=== PATIENT | female | born 1970 | race Two or more races ===

== ENCOUNTER 2025-05-28 08:37 | Outpatient (RCR) | payer MEDICAID, SELFPAY ==
--- NOTE | 2025-05-14 17:01 | CTCCONSULT_ITS ---
[facility] [address] [place], [place] [address] Consultation Note Date: 05/14/2025 MR#: [id number] Name: NATHALIE HIDALGO : 1970 Dx: C23 Malignant neoplasm of gallbladder Attending physician. Formerly [facility] Referring physician. Laura Ivy MD Reason consultation. Patient with metastatic carcinoma, gallbladder or pancreas biliary origin referred to the cancer treatment center. History of Present Illness: Patient is a 55-year-old lady who experienced abdominal pain associate with nausea vomiting with elevated liver function tests including bili of 4.8 and considerably elevated ALP ALT AST. MRCP was done which showed masses within the gallbladder distal aspect of the common bile duct and neck of the pancreas as well as fatty liver infiltration. CT 04/19 revealed hyperdense foci within the gallbladder lumen with wall enhancement possible L4 met no discrete cystic or solid focal pancreatic lesion and common bile duct. Underwent EUS FNB niharika hepatis lymph node at [facility] 04/16/2025 revealing metastatic carcinoma favoring pancreatobiliary origin, along with placement of stent. Referred to [facility] CT 04/24/25. No cystic or solid pancreatic lesion. Irregular wall thickening and enhancement about 3 cm common hepatic duct. Extensive upper abdominal retroperitoneal and right pelvic lymphadenopathy intraluminal hyperdense foci within gallbladder and wall enhancement. L4 met. PET scan 04/24/2025 revealed bony osseous mets T2 T5 L3-L4 and S3. Gallbladder with very high SUV max of 23 mild hypermetabolic lymph nodes surrounding common bile duct stent and multifocal retroperitoneal lymphadenopathy extending from peripancreatic region to the pelvis. [facility] recommended treatment closer to patient resides in [facility]. Most recent labs 04/24/2025 bili 1.2 ALT 139 AST 25 alk phos 295. CBC 6.9 hemoglobin 13 platelets 307 thousand Past Medical History: Diverticulosis and constipation Meds. Laxatives prior to recent cancer diagnosis was given oxycodone while at [facility] for pain Allergies none to meds. Social history from patient ; from [place] denies smoking drinking. Family history. Brother of ?blood? cancer Review of Systems: Has had about 5 pound weight loss in the past 3 months able to consume most foods without significant abdominal pain. Physical Exam: General: Well-appearing lady no acute distress HEENT: Eyes nonicteric no oral lesions no cervical or cervical adenopathy CV: Chest clear to auscultation heart regular rate and rhythm ABD: Soft no organomegaly tenderness EXT: No cyanosis clubbing or edema Assessment: #1. 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 #2. Significant mets involving TL spine and sacrum multifocal retroperitoneal lymphadenopathy extending from peripancreatic region to pelvis. #3. After plastic stent placed, her LFTs have come down substantially and patient is doing relatively well. #4. Dr. Pink, medical oncologist should be seeing her in a few days, and I took the liberty of ordering a port as well as labs that should be ready by the time patient is seen by her. #5. Have placed patient on oxycodone 5 mg every 6 as needed for her low back pain related to lumbosacral involvement, and will follow her as well. #6. Thank you very much for allowing me to evaluate this patient. Cc: Laura Ivy MD [facility]. Electronically signed by: Pineda Ames MD, DABR 05/14/2025 4:58 PM
--- NOTE | 2025-06-01 22:46 | CTCCONSULT_ITS ---
Patient: NATHALIE HIDALGO : 1970 MR#: [id number] Page 2 of 2 CONSULTATION NOTE DATE OF CONSULTATION: 05/28/2025 NAME: NATHALIE HIDALGO ACCOUNT: [id number] : 1970 AGE: 55 REFERRING PHYSICIAN: Rebecca Ashby MD PRIMARY PHYSICIAN: REASON FOR VISIT: Pancreaticobiliary tumor ONCOLOGY HISTORY: DIAGNOSIS: Malignant neoplasm of gallbladder [ICD10] C23 DATE OF DIAGNOSIS: 04/16/2025 STAGE/TNM: Biopsy of the niharika hepatis metastatic carcinoma favoring pancreaticobiliary origin metastatic TREATMENT HISTORY: Care?Plan Start?Date Cycle Day Intent modified?FOLFIRINOX?mario?3?pancreas 05/28/2025 1 14 Palliative HISTORY OF PRESENT ILLNESS: 55-year-old female non-Danish English speaking patient. Official transfer later was used during the conversation. Patient says that she had no symptoms and was planning for education. She initially thought her stomach pain was from anxiety and stress but later when pain got worse and she went to the emergency room and was diagnosed with cancer. Patient had a biopsy on 04/16/2025 which showed metastatic cancer favoring pancreaticobiliary origin. Patient had elevated liver enzymes hyperbilirubinemia dilated pancreatic duct which was suspicious for biliary obstruction and imaging showed mass within the gallbladder and distal aspect of the common bile duct. Patient have a history of diverticulosis and constipation. Patient had EUS ERCP 04/17/2025 hand plastic biliary stent was placed along with the biopsy of the niharika hepatis lymph node with the pathology showing cholangiocarcinoma. Patient was seen at [facility] OTHER MEDICAL HISTORY/CONDITIONS: DENIES DENIES FAMILY HISTORY: Sibling:?BROTHER???TEREZA SOCIAL HISTORY: Occupational?History:?[employer] Education?Level:?Completed 8th grade Marital?Status:? 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 Compazine - 10 mg 10 mg three times a day prn nausea 2. oxycodone - 5 mg 1 tab q6 3. Zofran - 8 mg 8 mg three times a day prn nausea Medications Last Reconciled by Starla Pereira LVN on 05/18/2025 ALLERGIES: REVIEW OF SYSTEMS: A complete 14-point review of systems was performed and is negative except as noted in interval history. PHYSICAL EXAMINATION: VITAL SIGNS: Temperature?98.9, B/P?118/79, Height?65?inches, Oxygen?Saturation?97% Weight?194?lbs (Change?since?05/14/25:?-4?lbs) PAIN: 8 - Very severe pain ECOG Performance Status: 1 - Symptomatic; ambulatory; restricted in strenuous activity GENERAL APPEARANCE: Appears well, in no apparent distress, appropriately interactive. HEENT: Normocephalic, no temporal wasting, normal conjunctiva, no scleral icterus, normal hearing, lips without lesions, neck normal range of motion. CARDIOVASCULAR: Not assessed. PULMONARY: Normal respiratory effort, no respiratory distress or use of accessory muscles, speaking in full sentences, no tachypnea. EXTREMITIES: No pedal edema or cyanosis. SKIN: Normal skin appearance. NEUROLOGIC: Alert and oriented x4. PSHYCHIATRIC: Appropriate affect, mood normal, behavior normal, intact thought and speech. LABORATORY DATA: I have personally reviewed and interpreted each of the patient?s relevant lab tests, abnormal findings are below: Date ASSESSMENT/PLAN: Pancreaticobiliary cancer metastatic Imaging did not reveal any pancreatic mass but showed likely mass in the gallbladder Will get PET CT scan Port catheter placement Patient is not a surgical candidate at also have bone involvement Pain management by Dr. Ames Will start on chemotherapy ORDERS: Order # Description [id number] CBC with Auto Diff + Comprehensive Metabolic Panel - 12 + CEA + CA 19-9 [id number] CBC with Auto Diff + Comprehensive Metabolic Panel + CA 19-9 [id number] [facility] CDX [id number] CBC with Auto Diff + Comprehensive Metabolic Panel + CA 19-9 [id number] CBC with Auto Diff + Comprehensive Metabolic Panel + CA 19-9 [id number] CBC with Auto Diff + Comprehensive Metabolic Panel + CA 19-9 [id number] CBC with Auto Diff + Comprehensive Metabolic Panel + CA 19-9 [id number] CBC with Auto Diff + Comprehensive Metabolic Panel + CA 19-9 [id number] CBC with Auto Diff + Comprehensive Metabolic Panel + CA 19-9 [id number] CBC with Auto Diff + Comprehensive Metabolic Panel + CA 19-9 [id number] CBC with Auto Diff + Comprehensive Metabolic Panel + CA 19-9 [id number] CBC with Auto Diff + Comprehensive Metabolic Panel + CA 19-9 [id number] CBC with Auto Diff + Comprehensive Metabolic Panel + CA 19-9 [id number] CBC with Auto Diff + Comprehensive Metabolic Panel + CA 19-9 RETURN TO CLINIC: I reviewed the diagnosis, prognosis, and recommended treatment/procedure options with the patient (and/or their legal school admissions representative), including the potential benefits, risks, side effects and alternative therapies. We also discussed the option of no treatment and the possibility of clinical trial participation, if applicable. All questions were addressed, and they demonstrated understanding. They provided informed consent to proceed with the proposed plan of care. BILLING AND COMPLIANCE: I reviewed external records from providers outside my specialty as summarized above. I spent a total of 50 minutes on this patient?s care on the day of their visit excluding time spent related to any billed procedures. This time includes time spent with the patient as well as time spent documenting in the medical record, reviewing patients records and tests, obtaining history, placing orders, communicating with other healthcare professionals, counseling the patient, family or caregiver, and/or care coordination for the diagnoses above. Electronically Signed by: Raji Pink MD T: 10:43 PM CC: PCP: Referring: Rebecca Ashby This document was completed utilizing speech recognition software. Grammatical errors, random word insertions, pronoun errors, and incomplete sentences are an occasional consequence of this system due to software limitations, ambient noise, and hardware issues. Any formal questions or concerns about the content, text or information contained within the body of this dictation should be directly addressed to the provider for clarification.
== END 2025-05-31 23:59 | disposition home or self-care (01) ==
LOC: SCTC 08:37
PROVIDERS: PCP Nurse Practitioner Family; Referring Provider Nurse Practitioner Family; Visit Provider Internal Medicine Hematology & Oncology
DX: C80.1 Malignant (primary) neoplasm, unspecified (principal); C79.51 Secondary malignant neoplasm of bone
CPT/HCPCS: 99213; G0463

== ENCOUNTER 2025-06-04 08:40 | Outpatient (CLI) | payer MEDICAID, SELFPAY ==
[2025-06-02 12:27] VITALS: BMI 30.4
[2025-06-03 13:52] LABS: Basophils # (Auto) 0.0 Thou/mm3 (0.0-0.2); Basophils % (Auto) 1 % (0-2.5); Eosinophils # (Auto) 0.2 Thou/mm3 (0.0-0.5); Eosinophils % (Auto) 2 % (0-10); Hematocrit 32.3 % (36.0-46.0); Hemoglobin 10.5 g/dL (12.0-16.0); Immature Granulocytes Auto 0.06 Thou/mm3 (0.00-0.00); Lymphocytes # (Auto) 3.1 Thou/mm3 (1.0-4.8); Lymphocytes % (Auto) 38 % (10-50); Mean Corpuscular HGB Conc 32.5 g/dl (31.0-37.0); Mean Corpuscular Hemoglobin 27.3 pg (25.0-35.0); Mean Corpuscular Volume 84 fL (80-100); Monocytes # (Auto) 0.5 Thou/mm3 (0.0-0.8); Monocytes % (Auto) 6 % (0-12); Neutrophils # (Auto) 4.2 Thou/mm3 (1.8-7.7); Neutrophils % (Auto) 52 % (37-80); Nucleated Red Blood Cell # 0.00 Thou/mm3 (0.00-0.00); Nucleated Red Blood Cell % 0 /100 WBC (0); Platelet Count 331 Thou/mm3 (140-440); RDW Standard Deviation 43.4 fL (36.4-46.3); Red Blood Count 3.85 Miln/mm3 (4.00-5.20); White Blood Count 8.0 Thou/mm3 (3.6-11.0)
[2025-06-03 14:06] LABS: Blood Urea Nitrogen 11 mg/dL (9-23); Creatinine (Component) 0.7 mg/dL (0.6-1.3); Estimated Creatinine Clearance 103.4 mL/min (>60); eGFR > 60 See Note
[2025-06-03 14:49] LABS: INR 1.0 (0.9-1.3); Partial Thromboplastin Time 26.5 Seconds (22.0-36.0); Prothrombin Time 10.8 Seconds (9.0-12.2)
[2025-06-04] VITALS (9 sets, daily range): BP systolic 136–171; BP diastolic 85–98; PULSE 74–103; RESP 16–18; TEMP 36.3–36.9; O2SAT 92–99
--- NOTE | 2025-06-04 09:00 | XR_ITS ---
Examination: IR venous implantation Port-A-Cath Ultrasound-guided needle placement right internal jugular vein. Fluoroscopy AP Chest, portable single view Exam date and time: June 04, 2025 0934 hours INDICATIONS: Diagnosis gallbladder cancer, need for long-term intravenous chemotherapy. Informed consent provided Technique: A timeout was completed, verifying correct patient, procedure, site, positioning, and special equipment if applicable The patient was placed in a dependent position appropriate for central line placement based on the vein to be cannulated. The patient's right neck was prepped and draped in sterile fashion. Maximum Sterile Barrier Technique used including cap, mask, sterile gown, sterile gloves, and sterile full body drape. If ultrasound technique used: sterile gel and sterile probe covers. Hand Hygiene performed using proper scrub, soap and water, or alcohol-based hand rub. Site right portable apparatus utilized to confirm patency of the right internal jugular vein, utilizing ultrasonographic guidance successful 21-gauge needle puncture into the right internal jugular vein Ultrasound images were recorded and stored. Successful micropuncture with a 21-gauge needle was performed. 0.18 wire guide was introduced into the IVC under fluoroscopic guidance. The wires is then exchanged for a 0.25 J-wire guide placed in the vena cava. Utilizing blunt dissection subcutaneous pocket formed in the upper right chest for the Port-A-Cath reservoir Port-A-Cath reservoir connected to an 8 Haitian 23 cm Port-A-Cath line placed through a venous sheath into the superior vena cava in proper position under fluoroscopic guidance The attending radiologist was present for the entire procedure Estimated blood loss4 cc. Findings: Under fluoroscopy, the tip of the Port-A-Cath is in good position in the vena cava. Portable chest x-ray, post Port-A-Cath placement, as ordered. Impression: Successful ultrasound-guided needle placement right internal jugular vein. Successful IR venous implantation Port-A-Cath, percutaneous. Fluoroscopy 0.2 minute radiation dose 1.44 milligray 1 spot fluoroscopic chest film. AP portable chest completion procedure demonstrates satisfactory position Port-A-Cath tip SVC. May use Port-A-Cath.
[2025-06-04] MEDS: LIDOCAINE INJ PF 1% 30 ML VIAL 5 ML EPID (10:52)
[2025-06-04] MEDS: ceFAZolin/D5W 1 GM IVPB 1 GM/50 ML BAG IV (10:52)
[2025-06-04] MEDS: HEPARIN SOD LOCK SYR 100 UNIT/ML 500 UNIT STFIELD (10:52)
[2025-06-04] MEDS: fentaNYL CIT INJ 50 mCg/ML AMP 2ML 100 MCG IVP (10:52)
[2025-06-04] MEDS: LIDOCAINE 1% W/EPI 1:100K 20 ML VIAL 7 ML INFL (10:52)
--- NOTE | 2025-06-04 12:30 | PC.NURSE ---
discharge instructions were given by Paulo Yard Caller number [phone] discharge instructions were signed by Srinivas dressing looks clean dry and intact without any signs of bleeding
== END 2025-06-04 12:10 | disposition home or self-care (01) ==
PROVIDERS: Radiology Diagnostic Radiology; PCP Nurse Practitioner Family; Referring Provider Radiology Therapeutic Radiology; Visit Provider Radiology Therapeutic Radiology
DX: C23 Malignant neoplasm of gallbladder (principal); Z01.812 Encounter for preprocedural laboratory examination
CPT/HCPCS: 36571; 36415; 76937; 77001; 82565; 84520; 85025; 85610; 85730; C1769; C1788; C1894; J0689; J0690; J1642; J3010; J3490; J7050

== ENCOUNTER 2025-06-30 14:52 | Outpatient (RCR) | payer MEDICAID, SELFPAY ==
[2025-06-24 16:08] LABS: Basophils # (Auto) 0.0 Thou/mm3 (0.0-0.2); Basophils % (Auto) 1 % (0-2.5); Eosinophils # (Auto) 0.2 Thou/mm3 (0.0-0.5); Eosinophils % (Auto) 3 % (0-10); Hematocrit 32.4 % (36.0-46.0); Hemoglobin 10.4 g/dL (12.0-16.0); Immature Granulocytes Auto 0.03 Thou/mm3 (0.00-0.00); Lymphocytes # (Auto) 2.0 Thou/mm3 (1.0-4.8); Lymphocytes % (Auto) 32 % (10-50); Mean Corpuscular HGB Conc 32.1 g/dl (31.0-37.0); Mean Corpuscular Hemoglobin 27.2 pg (25.0-35.0); Mean Corpuscular Volume 85 fL (80-100); Monocytes # (Auto) 0.5 Thou/mm3 (0.0-0.8); Monocytes % (Auto) 8 % (0-12); Neutrophils # (Auto) 3.5 Thou/mm3 (1.8-7.7); Neutrophils % (Auto) 56 % (37-80); Nucleated Red Blood Cell # 0.00 Thou/mm3 (0.00-0.00); Nucleated Red Blood Cell % 0 /100 WBC (0); Platelet Count 328 Thou/mm3 (140-440); RDW Standard Deviation 45.1 fL (36.4-46.3); Red Blood Count 3.83 Miln/mm3 (4.00-5.20); White Blood Count 6.2 Thou/mm3 (3.6-11.0)
[2025-06-24 16:26] LABS: Magnesium 2.0 mg/dL (1.6-2.6)
[2025-06-24 16:29] LABS: Alanine Aminotransferase 12 U/L (10-49); Albumin, Serum 4.1 gm/dL (3.5-5.0); Albumin/Globulin Ratio 1.3 (1.2-2.2); Alkaline Phosphatase 99 U/L (46-116); Anion Gap 11 (7-16); Aspartate Amino Transferase 15 U/L (0-34); BUN/Creatinine Ratio 13 Ratio (12-20); Bilirubin,Total 0.5 mg/dL (0.3-1.2); Blood Urea Nitrogen 10 mg/dL (9-23); Calcium 9.0 mg/dL (8.3-10.6); Calcium (Corrected) 9.0 mg/dL (8.5-10.1); Carbon Dioxide 26.4 mMol/L (20.0-31.0); Chloride 107 mMol/L (98-107); Creatinine (Component) 0.8 mg/dL (0.6-1.3); Globulin 3.1 gm/dL (2.3-3.5); Glucose 89 mg/dL (74-106); Osmolality,Calculated 284 (275-295); Potassium 4.0 mMol/L (3.4-5.1); Sodium 144 mMol/L (136-145); Thyroid Stimulating Hormone 1.85 uIU/mL (0.55-4.78); Total Protein 7.2 gm/dL (5.7-8.2); eGFR > 60 See Note
[2025-06-30 16:03] LABS: Basophils # (Auto) 0.0 Thou/mm3 (0.0-0.2); Basophils % (Auto) 1 % (0-2.5); Eosinophils # (Auto) 0.1 Thou/mm3 (0.0-0.5); Eosinophils % (Auto) 3 % (0-10); Hematocrit 30.6 % (36.0-46.0); Hemoglobin 9.9 g/dL (12.0-16.0); Immature Granulocytes Auto 0.02 Thou/mm3 (0.00-0.00); Lymphocytes # (Auto) 1.9 Thou/mm3 (1.0-4.8); Lymphocytes % (Auto) 45 % (10-50); Mean Corpuscular HGB Conc 32.4 g/dl (31.0-37.0); Mean Corpuscular Hemoglobin 27.1 pg (25.0-35.0); Mean Corpuscular Volume 84 fL (80-100); Monocytes # (Auto) 0.0 Thou/mm3 (0.0-0.8); Monocytes % (Auto) 1 % (0-12); Neutrophils # (Auto) 2.1 Thou/mm3 (1.8-7.7); Neutrophils % (Auto) 50 % (37-80); Nucleated Red Blood Cell # 0.00 Thou/mm3 (0.00-0.00); Nucleated Red Blood Cell % 0 /100 WBC (0); Platelet Count 291 Thou/mm3 (140-440); RDW Standard Deviation 43.8 fL (36.4-46.3); Red Blood Count 3.65 Miln/mm3 (4.00-5.20); White Blood Count 4.2 Thou/mm3 (3.6-11.0)
[2025-06-30 16:20] LABS: Magnesium 1.9 mg/dL (1.6-2.6)
[2025-06-30 16:25] LABS: Alanine Aminotransferase 32 U/L (10-49); Albumin, Serum 4.1 gm/dL (3.5-5.0); Albumin/Globulin Ratio 1.4 (1.2-2.2); Alkaline Phosphatase 93 U/L (46-116); Anion Gap 10 (7-16); Aspartate Amino Transferase 18 U/L (0-34); BUN/Creatinine Ratio 16 Ratio (12-20); Bilirubin,Total 0.4 mg/dL (0.3-1.2); Blood Urea Nitrogen 13 mg/dL (9-23); Calcium 9.4 mg/dL (8.3-10.6); Calcium (Corrected) 9.4 mg/dL (8.5-10.1); Carbon Dioxide 27.0 mMol/L (20.0-31.0); Chloride 106 mMol/L (98-107); Creatinine (Component) 0.8 mg/dL (0.6-1.3); Globulin 3.0 gm/dL (2.3-3.5); Glucose 102 mg/dL (74-106); Osmolality,Calculated 285 (275-295); Potassium 3.8 mMol/L (3.4-5.1); Sodium 143 mMol/L (136-145); Thyroid Stimulating Hormone 2.19 uIU/mL (0.55-4.78); Total Protein 7.1 gm/dL (5.7-8.2); eGFR > 60 See Note
== END 2025-06-30 23:59 | disposition home or self-care (01) ==
LOC: SCTC 14:52
PROVIDERS: PCP Nurse Practitioner Family; Referring Provider Nurse Practitioner Family; Visit Provider Internal Medicine Hematology & Oncology
DX: Z51.11 Encounter for antineoplastic chemotherapy (principal); C23 Malignant neoplasm of gallbladder
CPT/HCPCS: 36591; 80053; 83735; 84443; 85025; 96367; 96368; 96375; 96413; 96417; A4216; J1100; J1453; J1642; J1938; J2150; J2405; J3475; J3480; J3490; J7040; J7050; J9060; J9173; J9201; A9270

== ENCOUNTER 2025-07-29 09:03 | Outpatient (RCR) | payer MEDICAID, SELFPAY ==
--- NOTE | 2025-07-29 10:22 | CTCFLWUP_ITS ---
Patient: NATHALIE HIDALGO : 1970 Page 3 of 5 FOLLOW UP NOTE DATE OF SERVICE: 07/29/2025 NAME: NATHALIE HIDALGO ACCOUNT: [id number] : 1970 AGE: 55 INTERVAL HISTORY: Was recenty admitted in hospital and treated with empiric antibiotics. Patient likely had lower lobe pneumonia on right side. Mild naursea. ONCOLOGY HISTORY:?[facility] Hx? DIAGNOSIS: Malignant neoplasm of gallbladder [ICD10] C23 DATE OF DIAGNOSIS: 04/16/2025 STAGE/TNM: Biopsy of the niharika hepatis metastatic carcinoma favoring pancreaticobiliary origin metastatic Scans do not show any involvement of the pancreas or pancreatic mass TREATMENT HISTORY: Care?Plan Start?Date Cycle Day Intent modified?FOLFIRINOX?mario?3?pancreas 05/28/2025 1 14 Palliative CISplatin?25mg/m*2,?Gamzar?1000mg/m*2,?Durvalumab 06/25/2025 1 21 Palliative HISTORY OF PRESENT ILLNESS: 55-year-old female non-Upper Sorbian [place] speaking patient. Official transfer later was used during the conversation. Patient says that she had no symptoms and was planning for education. She initially thought her stomach pain was from anxiety and stress but later when pain got worse and she went to the emergency room and was diagnosed with cancer. Patient had a biopsy on 04/16/2025 which showed metastatic cancer favoring pancreaticobiliary origin. Patient had elevated liver enzymes hyperbilirubinemia dilated pancreatic duct which was suspicious for biliary obstruction and imaging showed mass within the gallbladder and distal aspect of the common bile duct. Patient have a history of diverticulosis and constipation. Patient had EUS ERCP 04/17/2025 hand plastic biliary stent was placed along with the biopsy of the niharika hepatis lymph node with the pathology showing cholangiocarcinoma. Patient was seen at [facility] OTHER MEDICAL HISTORY/CONDITIONS: Metastatic carcinoma - favor pancreatobilliary origin - 04/16/25 DENIES FAMILY HISTORY: Sibling:?BROTHER?-Leukemia?-?dx?age?37 Cancer History:?Nephew - Leukemia - dx age 10 SOCIAL HISTORY: Occupational?History:?[employer] Education?Level:?Completed 8th grade Marital?Status:? 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 Compazine - 10 mg 1 tab 1 tab every 6 hrs as needed for nasuea ... 2. Creon - 36,000-114,000- 180,000 unit 1 Capsule Three times a day 3. Lax Stool Softener With Senna - 8.6-50 mg 2 tab Daily 4. oxycodone - 5 mg 1 tab q6 5. Protonix - 40 mg 1 tab Daily 6. senna - 187 mg 1 tab Daily 7. Zofran - 8 mg 8 mg three times a day prn nausea?Palabra Meds? Medications Last Reconciled by Nathalie Oneil MD on 07/29/2025 ALLERGIES: No Known Drug Allergies REVIEW OF SYSTEMS: A complete 14-point review of systems was performed and is negative except as noted in interval history. PHYSICAL EXAMINATION:?CloneBlock PE? VITAL SIGNS: Temperature?98.5, B/P?142/95, Oxygen?Saturation?99% Weight?183?lbs (Change?since?07/15/25:?-7.8?lbs) PAIN: 2 - Mild pain ECOG Performance Status: 1 - Symptomatic; ambulatory; restricted in strenuous activity GENERAL APPEARANCE: Appears well, in no apparent distress, appropriately interactive. HEENT: Normocephalic, no temporal wasting, normal conjunctiva, no scleral icterus, normal hearing, lips without lesions, neck normal range of motion. CARDIOVASCULAR: Not assessed. PULMONARY: Normal respiratory effort, no respiratory distress or use of accessory muscles, speaking in full sentences, no tachypnea. EXTREMITIES: No pedal edema or cyanosis. SKIN: Normal skin appearance. NEUROLOGIC: Alert and oriented x4. PSHYCHIATRIC: Appropriate affect, mood normal, behavior normal, intact thought and speech. LABORATORY DATA: I have personally reviewed and interpreted each of the patient?s relevant lab tests, abnormal findings are below: Date 07/21/25 07/22/25 ??WHITE?BLOOD?COUNT?(Thou/mm3) 14.0?H 14.9?H ??RED?BLOOD?COUNT?(Miln/mm3) 2.94?L 2.95?L ??HEMOGLOBIN?(gm/dl) 7.8?L 8.0?L ??HEMATOCRIT?(%) 24.7?L 25.1?L ??PLATELET?COUNT?(Thou/mm3) 789?H 715?H ??NEUTROPHILS?%,?AUTO?(%) 61 58 ??LYMPH?%,?AUTO?(%) 17 16 ??NEUTROPHILS,?AUTO?(Thou/mm3) 8.5?H 8.7?H ??GLUCOSE,RANDOM?(mg/dL) 97 101 ??BLOOD?UREA?NITROGEN?(mg/dL) 7?L 10 ??CREATININE?(mg/dL) 0.60 0.60 ??SODIUM?(mmol/L) 137 137 ??POTASSIUM?(mmol/L) 4.0 3.9 ??CHLORIDE?(mmol/L) 101 102 ??CrCl?(CandG)?(ml/min) 115.60 115.60 ??AST/SGOT?(Unit/L) 82?H 70?H ??ALT/SGPT?(Unit/L) 110?H 102?H ??ALKALINE?PHOSPHATASE?(Unit/L) 300?H 305?H ??BILIRUBIN,?TOTAL?(mg/dL) 0.7 0.7 ??PROTEIN?TOTAL?(gm/dl) 6.6 6.9 ??ALBUMIN,?SERUM?(gm/dl) 3.5 3.8 ??GLOBULIN?(gm/dl) 3.1 3.1 ??ALBUMIN/GLOBULIN?RATIO 1.1?L 1.2 ??CALCIUM,?SERUM?(mg/dL) 8.4 8.4 ??CALCIUM?SERUM?(CORRECTED)?(mg/dL) 8.8 8.6 ASSESSMENT/PLAN:?Chaparro Pink Assessment/Plan? 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 ORDERS: Order # Description [id number] CBC + Comprehensive Metabolic Panel + Magnesium [id number] Lab Appointment [id number] Follow Up Appointment [id number] CBC + Comprehensive Metabolic Panel + Magnesium [id number] Lab Appointment [id number] Follow Up Appointment MD [id number] CBC + Comprehensive Metabolic Panel + Magnesium [id number] Lab Appointment [id number] Follow Up Appointment MD [id number] CBC + Comprehensive Metabolic Panel + Magnesium [id number] Lab Appointment [id number] Follow Up Appointment MD [id number] CBC + Comprehensive Metabolic Panel + Magnesium [id number] Lab Appointment [id number] Follow Up Appointment MD [id number] CBC + Comprehensive Metabolic Panel + Magnesium [id number] Lab Appointment [id number] Follow Up Appointment MD [id number] CBC + Comprehensive Metabolic Panel + Magnesium [id number] Lab Appointment [id number] Follow Up Appointment MD [id number] CBC + Comprehensive Metabolic Panel + Magnesium [id number] Lab Appointment [id number] Follow Up Appointment MD [id number] CBC + Comprehensive Metabolic Panel + Magnesium [id number] Lab Appointment [id number] Follow Up Appointment MD [id number] CBC + Comprehensive Metabolic Panel + Magnesium [id number] Lab Appointment [id number] Follow Up Appointment MD [id number] CBC + Comprehensive Metabolic Panel + Magnesium [id number] Lab Appointment [id number] Follow Up Appointment MD [id number] CBC + Comprehensive Metabolic Panel + Magnesium [id number] Lab Appointment [id number] Follow Up Appointment RETURN TO CLINIC: I reviewed the diagnosis, prognosis, and recommended treatment/procedure options with the patient (and/or their legal pharmaceutical representative), including the potential benefits, risks, side effects and alternative therapies. We also discussed the option of no treatment and the possibility of clinical trial participation, if applicable. All questions were addressed, and they demonstrated understanding. They provided informed consent to proceed with the proposed plan of care. BILLING AND COMPLIANCE: I reviewed external records from providers outside my specialty as summarized above. I spent a total of 50 minutes on this patient?s care on the day of their visit excluding time spent related to any billed procedures. This time includes time spent with the patient as well as time spent documenting in the medical record, reviewing patients records and tests, obtaining history, placing orders, communicating with other healthcare professionals, counseling the patient, family or caregiver, and/or care coordination for the diagnoses above. Electronically Signed by: Raji Pink MD T: 10:20 AM CC: PCP: Referring: Birttanie Gonzalez This document was completed utilizing speech recognition software. Grammatical errors, random word insertions, pronoun errors, and incomplete sentences are an occasional consequence of this system due to software limitations, ambient noise, and hardware issues. Any formal questions or concerns about the content, text or information contained within the body of this dictation should be directly addressed to the provider for clarification.
== END 2025-07-31 23:59 | disposition home or self-care (01) ==
LOC: SCTC 09:03
PROVIDERS: PCP Pediatrics; Referring Provider Pediatrics; Visit Provider Internal Medicine Hematology & Oncology
DX: Z51.11 Encounter for antineoplastic chemotherapy (principal); C23 Malignant neoplasm of gallbladder; R11.0 Nausea
CPT/HCPCS: 96367; 96368; 96375; 96413; 96417; 99212; A4216; J1100; J1434; J1642; J1938; J2151; J2405; J3475; J3480; J3490; J7040; J7050; J9060; J9201; A9270; G0463

== ENCOUNTER 2025-08-25 08:22 | Outpatient (RCR) | payer MEDICAID, SELFPAY ==
[2025-08-04 16:29] LABS: Basophils # (Auto) 0.1 Thou/mm3 (0.0-0.2); Basophils % (Auto) 1 % (0-2.5); Eosinophils # (Auto) 0.1 Thou/mm3 (0.0-0.5); Eosinophils % (Auto) 1 % (0-10); Hematocrit 29.6 % (36.0-46.0); Hemoglobin 9.1 g/dL (12.0-16.0); Immature Granulocytes Auto 0.08 Thou/mm3 (0.00-0.00); Lymphocytes # (Auto) 3.1 Thou/mm3 (1.0-4.8); Lymphocytes % (Auto) 35 % (10-50); Mean Corpuscular HGB Conc 30.7 g/dl (31.0-37.0); Mean Corpuscular Hemoglobin 26.1 pg (25.0-35.0); Mean Corpuscular Volume 85 fL (80-100); Monocytes # (Auto) 0.5 Thou/mm3 (0.0-0.8); Monocytes % (Auto) 6 % (0-12); Neutrophils # (Auto) 5.1 Thou/mm3 (1.8-7.7); Neutrophils % (Auto) 56 % (37-80); Nucleated Red Blood Cell # 0.00 Thou/mm3 (0.00-0.00); Nucleated Red Blood Cell % 0 /100 WBC (0); Platelet Count 565 Thou/mm3 (140-440); RDW Standard Deviation 52.9 fL (36.4-46.3); Red Blood Count 3.49 Miln/mm3 (4.00-5.20); White Blood Count 9.0 Thou/mm3 (3.6-11.0)
[2025-08-04 16:59] LABS: Magnesium 2.1 mg/dL (1.6-2.6)
[2025-08-04 17:05] LABS: Alanine Aminotransferase 19 U/L (10-49); Albumin, Serum 4.3 gm/dL (3.5-5.0); Albumin/Globulin Ratio 1.2 (1.2-2.2); Alkaline Phosphatase 132 U/L (46-116); Anion Gap 11 (7-16); Aspartate Amino Transferase 18 U/L (0-34); BUN/Creatinine Ratio 10 Ratio (12-20); Bilirubin,Total 0.3 mg/dL (0.3-1.2); Blood Urea Nitrogen 8 mg/dL (9-23); Calcium 9.3 mg/dL (8.3-10.6); Calcium (Corrected) 9.3 mg/dL (8.5-10.1); Carbon Dioxide 25.3 mMol/L (20.0-31.0); Chloride 105 mMol/L (98-107); Creatinine (Component) 0.8 mg/dL (0.6-1.3); Globulin 3.5 gm/dL (2.3-3.5); Glucose 118 mg/dL (74-106); Osmolality,Calculated 280 (275-295); Potassium 3.8 mMol/L (3.4-5.1); Sodium 141 mMol/L (136-145); Thyroid Stimulating Hormone 1.21 uIU/mL (0.55-4.78); Total Protein 7.8 gm/dL (5.7-8.2); eGFR > 60 See Note
[2025-08-10 09:38] LABS: Basophils # (Auto) 0.0 Thou/mm3 (0.0-0.2); Basophils % (Auto) 1 % (0-2.5); Eosinophils # (Auto) 0.1 Thou/mm3 (0.0-0.5); Eosinophils % (Auto) 2 % (0-10); Hematocrit 29.8 % (36.0-46.0); Hemoglobin 9.3 g/dL (12.0-16.0); Immature Granulocytes Auto 0.01 Thou/mm3 (0.00-0.00); Lymphocytes # (Auto) 2.2 Thou/mm3 (1.0-4.8); Lymphocytes % (Auto) 37 % (10-50); Mean Corpuscular HGB Conc 31.2 g/dl (31.0-37.0); Mean Corpuscular Hemoglobin 26.3 pg (25.0-35.0); Mean Corpuscular Volume 84 fL (80-100); Monocytes # (Auto) 0.0 Thou/mm3 (0.0-0.8); Monocytes % (Auto) 1 % (0-12); Neutrophils # (Auto) 3.6 Thou/mm3 (1.8-7.7); Neutrophils % (Auto) 60 % (37-80); Nucleated Red Blood Cell # 0.00 Thou/mm3 (0.00-0.00); Nucleated Red Blood Cell % 0 /100 WBC (0); Platelet Count 384 Thou/mm3 (140-440); RDW Standard Deviation 53.6 fL (36.4-46.3); Red Blood Count 3.53 Miln/mm3 (4.00-5.20); White Blood Count 6.1 Thou/mm3 (3.6-11.0)
[2025-08-10 09:48] LABS: Magnesium 1.9 mg/dL (1.6-2.6)
[2025-08-10 09:53] LABS: Alanine Aminotransferase 86 U/L (10-49); Albumin, Serum 4.4 gm/dL (3.5-5.0); Albumin/Globulin Ratio 1.4 (1.2-2.2); Alkaline Phosphatase 148 U/L (46-116); Anion Gap 8 (7-16); Aspartate Amino Transferase 35 U/L (0-34); BUN/Creatinine Ratio 22 Ratio (12-20); Bilirubin,Total 0.5 mg/dL (0.3-1.2); Blood Urea Nitrogen 13 mg/dL (9-23); Calcium 9.3 mg/dL (8.3-10.6); Calcium (Corrected) 9.3 mg/dL (8.5-10.1); Carbon Dioxide 27.6 mMol/L (20.0-31.0); Chloride 105 mMol/L (98-107); Creatinine (Component) 0.6 mg/dL (0.6-1.3); Globulin 3.1 gm/dL (2.3-3.5); Glucose 97 mg/dL (74-106); Osmolality,Calculated 281 (275-295); Potassium 4.0 mMol/L (3.4-5.1); Sodium 141 mMol/L (136-145); Thyroid Stimulating Hormone 1.57 uIU/mL (0.55-4.78); Total Protein 7.5 gm/dL (5.7-8.2); eGFR > 60 See Note
[2025-08-13 06:40] LABS: CA 19-9 Antigen* 653 U/mL (<34)
== END 2025-08-30 23:59 | disposition home or self-care (01) ==
LOC: SCTC 08:22
PROVIDERS: Referring Provider Internal Medicine Hematology & Oncology; Visit Provider Radiology Therapeutic Radiology
DX: Z51.11 Encounter for antineoplastic chemotherapy (principal); C23 Malignant neoplasm of gallbladder; C79.51 Secondary malignant neoplasm of bone; G89.3 Neoplasm related pain (acute) (chronic)
CPT/HCPCS: 36591; 80053; 83735; 84443; 85025; 86301; 96367; 96368; 96375; 96413; 96417; 99213; A4216; J1100; J1434; J1642; J1938; J2151; J2405; J3475; J3480; J3490; J7040; J7050; J9060; J9173; J9201; A9270; G0463